=== PATIENT | female | born 1980 | race Caucasian/White ===

== ENCOUNTER 2016-06-18 16:22 | Emergency (ER) | payer BC, OTHER ==
[~2016-06-18] VITALS: Wt 95.3 kg
[~2016-06-18 16:22] MED LIST: ALLEGRA180 MG PO; ATARAX25 MG PO; BACTRIM DS 8001 TA1 PO; BACTRIM DS 8001 TAB PO; CIPRO500 MG PO; CLARITIN10 MG PO; FIORICET 325 MG1 TAB PO; FLEXERIL10 MG PO; HYDROCODONE BIT1 T11 PO; KEFLEX500 MG PO; LOMOTIL 0.025 M1 TA1 PO; MEDROL DOSEPAK4 MG PO; MOTRIN800 MG PO; PREDNICOT20 MG PO; PROTONIX40 MG PO; ZOCOR20 MG PO
[2016-06-18 16:35] VITALS: BP 160/87
[2016-06-18] MEDS ORDERED: PAROXETINE HCL20 MG PO (16:39)
[2016-06-18] MEDS ORDERED: VALACYCLOVIR HYD1 GM PO (16:39)
[2016-06-18] MEDS ORDERED: GOOD NEIGHBOR L10 MG PO (16:39)
[2016-06-18] MEDS ORDERED: SUMATRIPTA6 MG/0.53 SQ (16:39)
[2016-06-18] MEDS ORDERED: Fioricet 325 MG1 TAB PO (16:40)
[2016-06-18] MEDS ORDERED: NEXIUM40 MG PO (16:40)
[2016-06-18] MEDS ORDERED: METHYLPRED-DP4 MG PO (16:40)
== END 2016-06-18 18:31 | disposition home or self-care (01) ==
LOC: ED 16:22
DX: G43.909 Migraine, unspecified, not intractable, without status migrainosus (principal); F17.200 Nicotine dependence, unspecified, uncomplicated; Z88.6 Allergy status to analgesic agent

== ENCOUNTER → 2016-08-27 | Outpatient (CLI) | payer BC ==
[~2016-08-27] MED LIST changes: +Fioricet 325 MG1 TAB PO; +GOOD NEIGHBOR L10 MG PO; +METHYLPRED-DP4 MG PO; +NEXIUM40 MG PO; +PAROXETINE HCL20 MG PO; +SUMATRIPTA6 MG/0.53 SQ; +VALACYCLOVIR HYD1 GM PO
[2016-08-30 02:05] LABS: NORMETANEPHRINE URINE 215 ug/L (Undefined); URINE METANEPHRINE 101 ug/L (Undefined); URINE METANEPHRINE, 24 HR 145 ug/24 hr (45-290); URINE NORMETANEPHRINE 24HR 310 ug/24 hr (82-500)
[2016-08-31 09:06] LABS: VMA, URINE 24 HR 3.9 mg/24 hr (0.0-7.5)
== END | disposition home or self-care (01) ==
LOC: LAB 13:53
PROVIDERS: Internal Medicine
DX: R53.83 Other fatigue (principal); R23.2 Flushing

== ENCOUNTER 2017-12-29 15:25 | Emergency (ER) | payer BC ==
[~2017-12-29] VITALS: Ht 165.1 cm; Wt 99.8 kg
[2017-12-29 15:27] VITALS: BP 134/95
[2017-12-29] MEDS ORDERED: MEDROL DOSEPAK4 MG PO (17:18)
[2017-12-29] MEDS ORDERED: CYCLOBENZAPRINE10 MG PO (17:18)
== END 2017-12-29 17:22 | disposition home or self-care (01) ==
LOC: ED 15:25
DX: S39.012A Strain of muscle, fascia and tendon of lower back, initial encounter (principal); Z88.6 Allergy status to analgesic agent; Z79.899 Other long term (current) drug therapy; X58.XXXA Exposure to other specified factors, initial encounter; Y93.89 Activity, other specified; Y92.89 Other specified places as the place of occurrence of the external cause; Y99.8 Other external cause status

== ENCOUNTER → 2018-07-26 | Outpatient (CLI) | payer BC ==
[~2018-07-26] MED LIST changes: +ANAPROX DS550 MG PO; +CYCLOBENZAPRINE10 MG PO; +ROBAXIN500 M1 PO
== END | disposition home or self-care (01) ==
LOC: MAMMO 12:37
DX: N64.4 Mastodynia (principal)

== ENCOUNTER → 2019-05-25 | Outpatient (CLI) | payer BC | END | disposition home or self-care (01) | LOC: US 06:23 | DX: K76.0 Fatty (change of) liver, not elsewhere classified (principal) ==

== ENCOUNTER 2019-08-14 11:46 | Emergency (ER) | payer BC ==
[~2019-08-14] VITALS: Ht 165.1 cm; Wt 113.4 kg
[2019-08-14 12:00] VITALS: BP 129/70
[2019-08-14] MEDS ORDERED: ZITHROMAX250 MG PO (14:37)
[2019-08-14] MEDS ORDERED: PREDNISONE50 MG PO (14:37)
== END 2019-08-14 14:19 | disposition home or self-care (01) ==
LOC: ED 11:46
DX: J20.9 Acute bronchitis, unspecified (principal); F17.200 Nicotine dependence, unspecified, uncomplicated; Z79.899 Other long term (current) drug therapy

== ENCOUNTER 2020-01-12 09:19 | Emergency (ER) | payer BC ==
[~2020-01-12] VITALS: Ht 165.1 cm; Wt 104.3 kg
[~2020-01-12 09:19] MED LIST changes: +PREDNISONE50 MG PO; +ZITHROMAX250 MG PO
[2020-01-12 09:23] VITALS: BP 158/84
[2020-01-12] MEDS ORDERED: CYCLOBENZAPRINE5 M3 PO (09:42)
[2020-01-12] MEDS ORDERED: MEDROL DOSEPAK4 MG PO (09:42)
== END 2020-01-12 11:11 | disposition home or self-care (01) ==
LOC: ED 09:19
DX: M54.5 Low back pain (principal); Z79.899 Other long term (current) drug therapy

== ENCOUNTER → 2020-05-06 | Outpatient (CLI) | payer BC ==
[~2020-05-06] MED LIST changes: +CYCLOBENZAPRINE5 M3 PO
== END | disposition home or self-care (01) ==
LOC: COVID19 14:25
PROVIDERS: ATTEND Physician Assistant
DX: Z20.828 Contact with and (suspected) exposure to other viral communicable diseases (principal)

== ENCOUNTER → 2020-05-22 | Outpatient (CLI) | payer BC | LOC: COVID19 15:35 | PROVIDERS: ATTEND Nurse Practitioner Primary Care | DX: Z20.828 Contact with and (suspected) exposure to other viral communicable diseases (principal) ==

== ENCOUNTER → 2020-06-12 | Outpatient (CLI) | payer BC | END | disposition home or self-care (01) | LOC: COVID19 13:50 | PROVIDERS: ATTEND Student in an Organized Health Care Education/Training Program | DX: Z20.828 Contact with and (suspected) exposure to other viral communicable diseases (principal) ==

== ENCOUNTER 2020-11-03 14:00 | Emergency (ER) | payer BC ==
[~2020-11-03] VITALS: Wt 104.3 kg
[2020-11-03 14:12] VITALS: BP 156/74
[2020-11-03] MEDS ORDERED: AMOXICILLIN500 M2 PO (17:07)
== END 2020-11-03 17:13 | disposition home or self-care (01) ==
LOC: ED 14:00
DX: J02.9 Acute pharyngitis, unspecified (principal); Z98.51 Tubal ligation status; Z79.899 Other long term (current) drug therapy

== ENCOUNTER 2021-10-22 15:19 | Emergency (ER) | payer BC ==
[~2021-10-22] VITALS: Wt 108.9 kg
[~2021-10-22 15:19] MED LIST changes: +AMOXICILLIN500 M2 PO
[2021-10-22 15:39] VITALS: BP 144/72
[2021-10-22] MEDS ORDERED: METHOCARBAMOL500 M1 PO (16:03)
[2021-10-22] MEDS ORDERED: PREDNISONE20 M1 PO (16:03)
== END 2021-10-22 16:57 | disposition home or self-care (01) ==
LOC: ED 15:19
DX: M54.31 Sciatica, right side (principal); Z98.51 Tubal ligation status

== ENCOUNTER → 2022-02-13 | Outpatient (CLI) | payer BC ==
[~2022-02-13] MED LIST changes: +METHOCARBAMOL500 M1 PO; +PREDNISONE20 M1 PO
[2022-02-13 14:23] LABS: VITAMIN D, 25-HYDROXY 15.3 ng/mL (30-100)
[2022-02-13 14:24] LABS: FERRITIN 16.2 ng/mL (10.0-291.0)
[2022-02-18 05:06] LABS: ZINC, PLASMA 73 ug/dL (44-115)
== END | disposition home or self-care (01) ==
LOC: LAB 13:09
PROVIDERS: ATTEND Student in an Organized Health Care Education/Training Program
DX: E66.01 Morbid (severe) obesity due to excess calories (principal); E46 Unspecified protein-calorie malnutrition

== ENCOUNTER → 2022-05-25 | Outpatient (CLI) | payer BC | END | disposition home or self-care (01) | LOC: US 07:30 | PROVIDERS: ATTEND Student in an Organized Health Care Education/Training Program | DX: K76.0 Fatty (change of) liver, not elsewhere classified (principal); K30 Functional dyspepsia ==

== ENCOUNTER 2023-02-01 13:45 | Emergency (ER) | payer BC ==
[~2023-02-01] VITALS: Ht 165.1 cm; Wt 97.5 kg
[2023-02-01 14:29] LABS: BASO # 0.1 10*3/uL (0.0-0.1); BASO % 0.5 % (0.0-1.0); EOS # 0.1 10*3/uL (0.0-0.4); EOS % 1.3 % (1.0-4.0); HEMATOCRIT 42.3 % (37.0-47.0); LYMPH # 3.3 10*3/uL (1.3-4.4); LYMPH % 36.5 % (27.0-41.0); MEAN CELL VOLUME 87.6 fl (81.0-99.0); MEAN CORPUSCULAR HGB CONC 33.1 g/dl (33.0-37.0); MEAN PLATELET VOLUME 9.8 fl (9.6-12.3); MONO # 0.7 10*3/uL (0.1-1.0); MONO % 7.4 % (3.0-9.0); NEUT # 4.9 10*3/uL (2.3-7.9); NEUT % 54.1 % (47.0-73.0); PLATELET COUNT AUTOMATED 393 10*3/uL (130-400); RED BLOOD COUNT 4.83 10*6/uL (4.10-5.10); RED CELL DISTRI WIDTH 14.3 % (0-14.5); WHITE BLOOD COUNT 9.2 10*3/uL (4.8-10.8)
[2023-02-01 14:37] LABS: BILIRUBIN Negative (Negative); BLOOD Negative (Negative); CLARITY Clear (Clear); COLOR Dark Yellow (Yellow); GLUCOSE Negative (Negative); KETONE 3+ (Negative); LEUKO ESTERASE Negative (Negative); NITRITE Negative (Negative); PH 5.5 (4.5-8.0); SPECIFIC GRAVITY >= 1.030 (1.001-1.030)
[2023-02-01 14:45] LABS: BACTERIA 1+; MUCOUS 2+; RBC 0-2 rbc/hpf (0-2)
[2023-02-01 14:49] LABS: ALKALINE PHOSPHATASE 72 U/L (46-116); BUN 14 mg/dl (9-23); CHLORIDE 105 mmol/L (98-107); LIPASE 32 U/L (12-53); POTASSIUM 3.8 mmol/L (3.4-5.1); SGPT/ALT 18 U/L (10-49); TOTAL PROTEIN 7.5 gm/dL (6.0-8.0)
[2023-02-01 14:50] LABS: BETA-HCG, QUANT < 3.0 mIU/mL (3-10)
[2023-02-01 16:23] VITALS: BP 118/57
== END 2023-02-01 16:45 | disposition home or self-care (01) ==
LOC: ED 13:45
PROVIDERS: Emergency Medicine
DX: E86.0 Dehydration (principal); R51.9 Headache, unspecified; R11.10 Vomiting, unspecified; Z88.5 Allergy status to narcotic agent; Z98.51 Tubal ligation status

== ENCOUNTER → 2023-07-01 | Outpatient (CLI) | payer BC ==
[2023-07-01 15:50] LABS: BASO # 0.1 10*3/uL (0.0-0.1); BASO % 0.4 % (0.0-1.0); EOS # 0.1 10*3/uL (0.0-0.4); EOS % 0.6 % (1.0-4.0); HEMATOCRIT 44.3 % (37.0-47.0); LYMPH # 3.6 10*3/uL (1.3-4.4); LYMPH % 32.1 % (27.0-41.0); MEAN CELL VOLUME 90.8 fl (81.0-99.0); MEAN CORPUSCULAR HGB 29.1 pg (27.0-31.0); MEAN CORPUSCULAR HGB CONC 32.1 g/dl (33.0-37.0); MEAN PLATELET VOLUME 9.2 fl (9.6-12.3); MONO # 0.9 10*3/uL (0.1-1.0); MONO % 7.9 % (3.0-9.0); NEUT # 6.6 10*3/uL (2.3-7.9); NEUT % 58.8 % (47.0-73.0); PLATELET COUNT AUTOMATED 349 10*3/uL (130-400); RED BLOOD COUNT 4.88 10*6/uL (4.10-5.10); RED CELL DISTRI WIDTH 13.3 % (0-14.5); WHITE BLOOD COUNT 11.2 10*3/uL (4.8-10.8)
[2023-07-01 16:26] LABS: ALKALINE PHOSPHATASE 68 U/L (46-116); BUN 13 mg/dl (9-23); CHLORIDE 106 mmol/L (98-107); POTASSIUM 4.1 mmol/L (3.4-5.1); SGPT/ALT 11 U/L (5-49); TOTAL PROTEIN 7.6 gm/dL (6.0-8.0)
[2023-07-01 16:29] LABS: VITAMIN D, 25-HYDROXY 77.2 ng/mL (30-100)
== END | disposition home or self-care (01) ==
LOC: LAB 15:20
PROVIDERS: ATTEND Nurse Practitioner Adult Health
DX: K91.2 Postsurgical malabsorption, not elsewhere classified (principal)

== ENCOUNTER → 2023-10-11 | Outpatient (CLI) | payer BC ==
[2023-10-11 12:32] LABS: BASO # 0.1 10*3/uL (0.0-0.1); BASO % 0.6 % (0.0-1.0); EOS # 0.1 10*3/uL (0.0-0.4); EOS % 0.6 % (1.0-4.0); HEMATOCRIT 40.4 % (37.0-47.0); LYMPH # 2.7 10*3/uL (1.3-4.4); LYMPH % 33.9 % (27.0-41.0); MEAN CELL VOLUME 91.6 fl (81.0-99.0); MEAN CORPUSCULAR HGB 29.3 pg (27.0-31.0); MEAN CORPUSCULAR HGB CONC 31.9 g/dl (33.0-37.0); MEAN PLATELET VOLUME 9.3 fl (9.6-12.3); MONO # 0.7 10*3/uL (0.1-1.0); MONO % 8.5 % (3.0-9.0); NEUT # 4.5 10*3/uL (2.3-7.9); NEUT % 56.3 % (47.0-73.0); PLATELET COUNT AUTOMATED 340 10*3/uL (130-400); RED BLOOD COUNT 4.41 10*6/uL (4.10-5.10); RED CELL DISTRI WIDTH 12.6 % (0-14.5); WHITE BLOOD COUNT 8.1 10*3/uL (4.8-10.8)
[2023-10-11 12:58] LABS: ALKALINE PHOSPHATASE 59 U/L (46-116); BUN 17 mg/dl (9-23); CHLORIDE 107 mmol/L (98-107); CHOLESTEROL 192 mg/dL (<200); LDL CHOLESTEROL 113 mg/dL (9-159); POTASSIUM 3.9 mmol/L (3.4-5.1); SGPT/ALT 10 U/L (5-49); TOTAL PROTEIN 6.9 gm/dL (6.0-8.0); TRIGLYCERIDES 83 mg/dl (<150)
== END | disposition home or self-care (01) ==
LOC: LAB 12:02
PROVIDERS: ATTEND Nurse Practitioner Adult Health
DX: E66.01 Morbid (severe) obesity due to excess calories (principal)

== ENCOUNTER 2023-10-23 19:43 | Emergency (ER) | payer BC ==
[~2023-10-23] VITALS: Ht 165.1 cm; Wt 71.2 kg
[2023-10-23 20:08] VITALS: BP 125/48
[2023-10-23] MEDS ORDERED: CYCLOBENZAPRINE10 MG PO (20:22)
[2023-10-23] MEDS ORDERED: methylPREDNISolone sod succ 125 MG VIAL IM ONE (20:25)
[2023-10-23] MEDS ORDERED: Cyclobenzaprine Hydrochlorid 10 MG TAB PO ONE (20:40)
== END 2023-10-23 20:46 | disposition home or self-care (01) ==
LOC: ED 19:43
DX: S39.012A Strain of muscle, fascia and tendon of lower back, initial encounter (principal); G43.909 Migraine, unspecified, not intractable, without status migrainosus; Z88.5 Allergy status to narcotic agent; Z98.51 Tubal ligation status; X50.0XXA Overexertion from strenuous movement or load, initial encounter; Y93.F2 Activity, caregiving, lifting; Y92.238 Other place in hospital as the place of occurrence of the external cause; Y99.8 Other external cause status

== ENCOUNTER → 2025-03-07 | Outpatient (CLI) | payer BC | END | disposition home or self-care (01) | LOC: CARD 02-14 08:30 | PROVIDERS: ATTEND Physician Assistant | DX: I34.0 Nonrheumatic mitral (valve) insufficiency (principal); I49.49 Other premature depolarization ==